=== PATIENT | female | born 1960 | race Caucasian/White ===

== ENCOUNTER → 2019-07-30 | Outpatient (CLI) | payer BC ==
[2019-07-30 16:50] LABS: African American GFR (CKD) 110.7 (60.0-200.0); Albumin 4.2 g/dL (3.80-4.90); Albumin/Globulin Ratio 1.91 (1.60-3.17); Anion Gap 4.5 mmol/L (4.00-12.00); Calcium 8.9 mg/dL (8.7-10.3); Carbon Dioxide 31.5 mmol/L (21.6-31.8); Chol/HDL Ratio 2.63; Globulin 2.2 g/dL (1.6-3.3); LDL Cholesterol,Calculated 72.8 mg/dL (0.0-131.0); Non-African American GFR(CKD) 95.5 (60.0-200.0); Potassium 4.1 mmol/L (3.5-5.5); Total Protein 6.4 g/dL (6.2-8.2); VLDL Calculation 15.2 mg/dL (5.00-40.00)
[2019-07-30 16:59] LABS: T4, Free (Free Thyroxine) 1.3 ng/dL (0.80-1.80)
== END | disposition home or self-care (01) ==
LOC: LABWHC1 08:24
PROVIDERS: ATTEND Obstetrics & Gynecology
DX: Z13.1 Encounter for screening for diabetes mellitus (principal); Z13.29 Encounter for screening for other suspected endocrine disorder; Z13.220 Encounter for screening for lipoid disorders; Z13.228 Encounter for screening for other metabolic disorders
CPT/HCPCS: 36415; 80053; 80061; 82306; 84439; 84443

== ENCOUNTER → 2020-06-13 | Outpatient (CLI) | payer BC ==
--- NOTE | 2020-06-19 10:49 | MM ---
Reason for exam: screening (asymptomatic). Last mammogram was performed 4 years and 5 months ago. History: Family history of breast cancer in mother at age 81 and breast cancer in maternal grandmother at age 52. Took hormonal contraceptives for 3 years. Physical Findings: A clinical breast exam by your physician is recommended on an annual basis and results should be correlated with mammographic findings. MG Screening Mammo w CAD Bilateral CC and MLO view(s) were taken. Prior study comparison: January 09, 2016, bilateral MG 3d screening mammo w/cad. There are scattered fibroglandular densities. There is chronic nodularity in the left breast. No significant changes when compared with prior studies. ASSESSMENT: Benign, BI-RAD 2 RECOMMENDATION: Routine screening mammogram of both breasts in 1 year.
== END | disposition home or self-care (01) ==
LOC: RADMAMWWP 13:08
PROVIDERS: ATTEND Obstetrics & Gynecology
DX: Z12.31 Encounter for screening mammogram for malignant neoplasm of breast (principal)
CPT/HCPCS: 77067

== ENCOUNTER → 2020-06-13 | Outpatient (CLI) | payer BC ==
--- NOTE | 2020-06-13 16:36 | BD ---
EXAMINATION TYPE: Axial Bone Density DATE OF EXAM: 06/13/2020 COMPARISON: 12.08.2013 CLINICAL HISTORY: 60 YR OLD FEMALE.......ICD-10 CODE: Z78.0 POST MENOPAUSAL Height: 61 Weight: 212 FRAX RISK QUESTIONS: Family History (Parent hip fracture): YES, SPINE FXs RISK FACTORS HISTORY OF: Family History of Osteoporosis: YES, BROTHER...SPINAL DEGE. Diet low in dairy products/other sources of calcium: YES, VERY ALLERGIC Postmenopausal woman: LMP SEPT, POSSIBLE AT 60 Hyperparathyroidism: NO Adrenal Insufficiency: NO MEDICATIONS: Additional Medications: VIT D3, Additional History: NOTHING ADDITIONAL TO NOTE EXAM MEASUREMENTS: Bone mineral densitometry was performed using the [employer] System. Bone mineral density as measured about the Lumbar spine is: ----- L1-L4(G/cm2): 1.366 T Score Values are as follows: ----- L1: 0.7 ----- L2: 1.3 ----- L3: 1.9 ----- L4: 1.9 ----- L1-L4: 1.6 Bone mineral density has: REMAINED THE SAME...0.0%..SINCE STUDY OF 12.08.2013 Bone mineral density about the R hip (g/cm2): 1.211 Bone mineral density about the L hip (g/cm2): 1.171 T Score values are as follows: -----R Neck: 0.4 -----L Neck: 0.1 -----R Total: 1.6 -----L Total: 1.5 Bone mineral density has: Increased 1.3% SINCE THE STUDY OF 12.09.2015 FRAX%s: THERE IS A 5.3% CHANCE FOR A MAJOR OSTEOPOROTIC FX....AND A 0.1% FOR HIP.... PROBABILITY FO R FX IN 10 YRS TIME IMPRESSION: Normal (Values between +1 and -1 indicate normal bone mass). Consider repeating this study in 5 year s or sooner if there is some new clinical indication. NOTE: T-SCORE=SD OF THE YOUNG ADULT MEAN.
== END | disposition home or self-care (01) ==
LOC: RADBDWWP 13:33
PROVIDERS: ATTEND Obstetrics & Gynecology
DX: Z78.0 Asymptomatic menopausal state (principal)
CPT/HCPCS: 77080

== ENCOUNTER → 2021-11-07 | Outpatient (CLI) | payer BC ==
--- NOTE | 2021-11-07 15:57 | BD ---
EXAMINATION TYPE: Axial Bone Density DATE OF EXAM: 11/07/2021 COMPARISON: NONE CLINICAL HISTORY: 61 years year old Female. ICD-10 CODE: N95.1 POST MENOPUASAL SYMPTOMS Height: 61.5 Weight: 200 FRAX RISK QUESTIONS: Alcohol (3 or more units per day): NO Family History (Parent hip fracture): NO Glucocorticoids NO (History of Fracture in Adulthood: NO Secondary Osteoporosis: 1. Type 1 Diabetes: NO 2. Hyperthyroidism: NO 3. Menopause before 45: NO 4. Malnutrition: NO 5. Chronic liver disease: NO Rheumatoid Arthritis: NO Current Tobacco Use: NO RISK FACTORS HISTORY OF: Hip Fracture (Right/Left): NO Spine Fracture: NO History of Wrist Fracture: NO Surgery to Spine/Hip(right/left)/Wrist (right/left): NO Family History of Osteoporosis: NO Active: NO Diet low in dairy products/other sources of calcium: YES Postmenopausal woman: YES Take estrogen and/or progesterone medications: NO Lost more than 2 inches in height since high school: NO Frequent falls: NO Poor Health: NO Hyperparathyroidism: NO Adrenal Insufficiency: NO MEDICATIONS: Prednisone or other steroids: Thyroid MedicationsNO Osteoporosis Medications: Additional Medications: VIT D, Additional History: EXAM MEASUREMENTS: Bone mineral densitometry was performed using the [employer] System. Bone mineral density as measured about the Lumbar spine is: ----- L1-L4(G/cm2): 1.240 T Score Values are as follows: ----- L1: 0.1 ----- L2: 0.1 ----- L3: 0.8 ----- L4: 0.7 ----- L1-L4: 0.5 Bone mineral density has: DECREASED 9.9 % since study of: 06/13/2020 Bone mineral density about the R hip (g/cm2): 1.024 Bone mineral density about the L hip (g/cm2): 1.021 T Score values are as follows: -----R Neck: -0.1 -----L Neck: -0.1 -----R Total: 1.1 -----L Total: 0.8 Bone mineral density has: DECREASED 5.3 % since study of: 06/13/2020 FRAX%s: The graph provided illustrates a 5.8% chance for a major osteoporotic fx and a 0.1% chance fo r the hips probability for fx in 10 years time. IMPRESSION: Normal (Values between +1 and -1 indicate normal bone mass). Consider repeating this study in 5 year s or sooner if there is some new clinical indication. NOTE: T-SCORE=SD OF THE YOUNG ADULT MEAN.
--- NOTE | 2021-11-08 09:52 | MM ---
Reason for Exam: Screening (asymptomatic). Last mammogram was performed 1 year(s) and 5 month(s) ago. Patient History: Menarche at age 10. First Full-Term at age 22. Patient used Hormonal Contraceptives for 3 years. Maternal grandmother had breast cancer, age 52. Mother had breast cancer, age 81. Risk Values: Elissa 5 year model risk: 3.0%. NCI Lifetime model risk: 14.8%. Film Views: Bilateral CC views were taken. Bilateral MLO views were taken. Left MLO views were taken. Prior Study Comparison: 01/19/2014 Bilateral Diagnostic Mammogram, [facility]. 01/09/2016 Bilateral Screening Mammogram, [facility]. 06/13/2020 Bilateral Screening Mammogram, [facility]. Tissue Density: There are scattered fibroglandular densities. Findings: Analyzed By CAD. There is no suspicious group of microcalcifications or new suspicious mass in either breast. Overall Assessment: Benign, BI-RAD 2 Management: Screening Mammogram of both breasts in 1 year. A clinical breast exam by your physician is recommended on an annual basis and results should be correlated with mammographic findings. Electronically signed and approved by: Alexys Ayala M.D. Radiologis
== END | disposition home or self-care (01) ==
LOC: RADMAMWWP 07:04
PROVIDERS: ATTEND Obstetrics & Gynecology
DX: Z12.31 Encounter for screening mammogram for malignant neoplasm of breast (principal); Z78.0 Asymptomatic menopausal state; Z80.3 Family history of malignant neoplasm of breast
CPT/HCPCS: 77063; 77067; 77080

== ENCOUNTER → 2023-11-06 | Outpatient (CLI) | payer BC ==
--- NOTE | 2023-11-07 18:09 | MM ---
Reason for Exam: Screening (asymptomatic). Last mammogram was performed 2 year(s) and 0 month(s) ago. Patient History: Menarche at age 10. First Full-Term at age 22. Postmenopausal. Patient used Hormonal Contraceptives for 3 years. Maternal grandmother had breast cancer, age 52. Mother had breast cancer, age 81. Risk Values: Elissa 5 year model risk: 3.2%. NCI Lifetime model risk: 14.0%. Prior Study Comparison: 01/09/2016 Bilateral Screening Mammogram, [facility]. 06/13/2020 Bilateral Screening Mammogram, [facility]. 11/07/2021 Bilateral MG 3D screening mammo w/cad, [facility]. Tissue Density: The breasts are heterogeneously dense, which may obscure small masses. Findings: Analyzed By CAD. Pattern is stable. A focal asymmetry is unchanged in the left breast. Benign calcifications within the left breast. No suspicious groups of microcalcifications, spiculated or lobular masses, architectural distortion or other secondary signs of malignancy are mammographically apparent. Overall Assessment: Benign, BI-RAD 2 Management: Screening Mammogram of both breasts in 1 year. A negative mammogram report should not preclude additional follow up of suspicious palpable abnormalities. Patient should continue monthly self breast exam. A clinical breast exam by your physician is recommended on an annual basis and results should be correlated with mammographic findings. Note on Elissa scores and lifetime risk: 1. A Elissa score greater than 3% is considered moderate risk. If this is the case, consider specialist referral to assess eligibility for a risk reducing agent. 2. If overall lifetime risk for the development of breast cancer is 20% or higher, the patient may qualify for future screening with alternating mammogram and breast MRI. Electronically signed and approved by: Vivek Gregg D.O. Radiologis
== END | disposition home or self-care (01) ==
LOC: RADMAMWWP 09:10
PROVIDERS: ATTEND Family Medicine
DX: Z12.31 Encounter for screening mammogram for malignant neoplasm of breast (principal); Z80.3 Family history of malignant neoplasm of breast; Z78.0 Asymptomatic menopausal state
CPT/HCPCS: 77063; 77067

== ENCOUNTER → 2023-11-12 | Outpatient (CLI) | payer BC ==
--- NOTE | 2023-11-12 12:20 | BD ---
EXAMINATION TYPE: Axial Bone Density DATE OF EXAM: 11/12/2023 CLINICAL HISTORY: 63 years old Female. ICD-10 CODE: N95.1 MENOPAUSAL AND FEMALE CLIMACTERIC STATES Height: 5 ft 1 1/4 in Weight: 208 FRAX RISK QUESTIONS: Alcohol (3 or more units per day): no Family History (Parent hip fracture): no Glucocorticoids (More than 3mos): no (Ex: prednisone, prednisolone, methylprednisolone, dexamethasone, and hydrocortisone). History of Fracture in Adulthood: no Secondary Osteoporosis: 1. Type 1 Diabetes: no 2. Hyperthyroidism: no 3. Menopause before 45: no 4. Malnutrition: no 5. Chronic liver disease: no Rheumatoid Arthritis: no Current Tobacco Use: no RISK FACTORS HISTORY OF: Surgery to Spine/Hip(right/left)/Wrist (right/left): no MEDICATIONS: Thyroid Medications: none Osteoporosis Medications: none EXAM MEASUREMENTS: Bone mineral densitometry was performed using the [employer] System. Bone mineral density as measured about the Lumbar spine is: ----- L1-L4(G/cm2): 1.257 T Score Values are as follows: ----- L1: 0.2 ----- L2: 0.3 ----- L3: 0.9 ----- L4: 0.9 ----- L1-L4: 0.6 Z Score Values are as follows: ----- L1: 0.6 ----- L2: 0.7 ----- L3: 1.4 ----- L4: 1.3 ----- L1-L4: 1.1 Bone mineral density has: increased 1.4 % since study of: 2021 Bone mineral density about the R hip (g/cm2): 0.969 Bone mineral density about the L hip (g/cm2): 0.961 T Score values are as follows: -----R Neck: -0.5 -----L Neck: -0.6 -----R Total: 0.7 -----L Total: 0.7 Z Score values are as follows: -----R Neck: 0.2 -----L Neck: 0.2 -----R Total: 1.1 -----L Total: 1.0 Bone mineral density has: decreased -3.2 % since study of: 2021 FRAX%s: The graph provided illustrates a 6.4 % chance for a major osteoporotic fx and a 0.3% chance f or the hips probability for fx in 10 years time. IMPRESSION: Normal (Values between +1 and -1 indicate normal bone mass). Consider repeating this study in 5 year s or sooner if there is some new clinical indication. NOTE: T-SCORE=SD OF THE YOUNG ADULT MEAN.
== END | disposition home or self-care (01) ==
LOC: RADBDWWP 07:07
PROVIDERS: ATTEND Family Medicine
DX: N95.1 Menopausal and female climacteric states (principal)
CPT/HCPCS: 77080